=== PATIENT | female | born 1930 | race Caucasian/White ===

== ENCOUNTER 2016-08-10 13:29 | Observation (INO) | payer OTHER, MEDICARE ==
[~2016-08-10] VITALS: Ht 167.6 cm; Wt 62.2 kg
[~2016-08-10 13:29] MED LIST: ANTI-DIARRHEA2 MG PO; ASPIRIN81 M1 PO; BYSTOLIC10 MG PO; BYSTOLIC20 MG PO; CIPRO500 MG PO; CYANOCOBALAM1000 MCG PO; DIAZEPAM5 MG PO; ELIQUIS2.5 MG PO; Ecotrin PO; FOLIC ACID1 MG PO; GLUCOPHAGE1000 MG PO; GLUCOPHAGE500 MG PO; IBUPROFEN800 MG PO; IMODIUM A-D2 MG PO; JANUVIA100 MG PO; LEVOTHYROXINE88 MCG PO; LEVOXYL100 MCG PO; METFORMIN HCL500 MG PO; NORVASC10 MG PO; NORVASC5 MG PO; SIMVASTATIN20 MG PO; SYNTHROID100 MCG PO; VALIUM5 MG PO; VITAMIN D31000 UNI2 PO; ZOCOR20 MG PO
[2016-08-10 14:09] LABS: HEMATOCRIT 41.8 % (36.0-46.0); MCH 28.2 PG (29.0-34.0); MCV 85.3 FL (83-99); MEAN PLAT.VOLUME 9.4 uM^3 (9.5-12.4); PLATELET COUNT 208 K/uL (156-360); RBC DIS.WIDTH-CV 13.2 % (11.8-14.6); RBC DIS.WIDTH-SD 40.6 % (39-53)
[2016-08-10 14:22] LABS: CHLORIDE 101 mEq/L (99-109); POTASSIUM 4.1 mEq/L (3.7-5.4); SODIUM 137 mEq/L (136-147)
[2016-08-10 14:24] LABS: GLUCOSE 147 mg/dL (70-99)
[2016-08-10 14:25] LABS: ANION GAP 8 MEQ/L (2-14)
[2016-08-10 14:26] LABS: TOTAL BILIRUBIN 0.6 mg/dL (0.0-1.0)
[2016-08-10 14:27] LABS: ALKALINE PHOSPHATASE 22 IU/L (3-129)
[2016-08-10 14:28] LABS: GFR ESTIMATE (CALCULATED) > 59 mL/min/
[2016-08-10 14:29] LABS: UREA NITROGEN (BUN) 13 mg/dL (9-23)
[2016-08-10] MEDS ORDERED: ULTRAM50 MG PO (17:27)
[2016-08-10] MEDS ORDERED: LEVOTHYROXINE100 MCG PO (21:57)
[2016-08-10] MEDS ORDERED: NORVASC2.5 MG PO (21:57)
[2016-08-10] MEDS ORDERED: NAMENDA10 MG PO (21:58)
[2016-08-11 00:15] VITALS: BP 140/76
[2016-08-11 00:50] VITALS: BP 140/76
[2016-08-11 03:53] VITALS: BP 180/77
[2016-08-11 06:52] LABS: POINT-OF-CARE METER ID UU14149397
[2016-08-11 07:20] LABS: HEMATOCRIT 40.1 % (36.0-46.0); MCH 28.1 PG (29.0-34.0); MCHC 33.2 G/DL (30.0-36.0); MCV 84.6 FL (83-99); MEAN PLAT.VOLUME 9.5 uM^3 (9.5-12.4); PLATELET COUNT 217 K/uL (156-360); RBC DIS.WIDTH-CV 12.8 % (11.8-14.6); RBC DIS.WIDTH-SD 39.6 % (39-53); RED BLOOD COUNT 4.74 M/uL (3.80-5.20); WHITE BLOOD COUNT 10.3 K/uL (4.1-10.2)
[2016-08-11 07:41] LABS: ANION GAP 9 MEQ/L (2-14); CHLORIDE 97 MEQ/L (99-109); GFR ESTIMATE (CALCULATED) > 59 mL/min/; GLUCOSE 200 mg/dL (70-99); POTASSIUM 3.7 MEQ/L (3.7-5.4); SAMPLE HEMOLYSIS CHECK 0; SAMPLE ICTERIC CHECK 0; SAMPLE LIPEMIA CHECK 0; SODIUM 134 MEQ/L (136-147); UREA NITROGEN (BUN) 11 mg/dL (9-23)
[2016-08-11 07:52] VITALS: BP 150/82
[2016-08-11 11:28] VITALS: BP 169/74
[2016-08-11 11:57] LABS: POINT-OF-CARE METER ID UU14149397
[2016-08-11 15:49] VITALS: BP 132/68
[2016-08-11] MEDS ORDERED: AMLODIPINE BES2.5 MG PO (15:53)
[2016-08-11] MEDS ORDERED: DOCUSATE SODIU100 MG PO (15:54)
[2016-08-11 16:50] LABS: ADD MIUA? YES; BILIRUBIN NEGATIVE; BLOOD SMALL; COLOR YELLOW ((YELLOW)); GLUCOSE (STRIP) 50; KETONES 5; LEUKOCYTES LARGE; NITRITE NEGATIVE; PROTEIN (STRIP) NEGATIVE; SPECIFIC GRAVITY 1.008 (1.000-1.030); UROBILINOGEN 0.2 MG/DL (0.2-1.0)
[2016-08-11 16:55] LABS: POINT-OF-CARE METER ID UU14149397
[2016-08-11 17:01] LABS: BACTERIA NONE SEEN /HPF; EPITHELIAL CELLS RARE /HPF; MUCUS TRACE /LPF; RED BLOOD CELLS 0-5 /HPF (0-5); UCUL ADDED? NO; WHITE BLOOD CELLS 30-40 /HPF (0-5)
[2016-08-11] MEDS ORDERED: KEFLEX500 MG PO (17:33)
== END 2016-08-11 18:23 ==
LOC: EME 13:29 → EDOF 22:48 → 3EAST 23:58
PROVIDERS: Hospitalist; Internal Medicine; Nurse Practitioner Family; Physician Assistant
DX: S82.032A Displaced transverse fracture of left patella, initial encounter for closed fracture (principal); S22.42XA Multiple fractures of ribs, left side, initial encounter for closed fracture; M25.462 Effusion, left knee; E11.9 Type 2 diabetes mellitus without complications; I10 Essential (primary) hypertension; E78.5 Hyperlipidemia, unspecified; I48.91 Unspecified atrial fibrillation; R41.0 Disorientation, unspecified; I49.5 Sick sinus syndrome; I25.10 Atherosclerotic heart disease of native coronary artery without angina pectoris; I25.2 Old myocardial infarction; Z95.5 Presence of coronary angioplasty implant and graft; E11.8 Type 2 diabetes mellitus with unspecified complications; E03.9 Hypothyroidism, unspecified; Z95.0 Presence of cardiac pacemaker; Z87.891 Personal history of nicotine dependence; Z88.0 Allergy status to penicillin; Z91.040 Latex allergy status; Z79.01 Long term (current) use of anticoagulants; W19.XXXA Unspecified fall, initial encounter
CPT/HCPCS: 70450; 71020; 71101; 72125; 73030; 73130; 73564; 80048; 80053; 81003; 82948; 85027; 87040; 87086; 93005; 99281; 99285; G0378; J1815; J7030

== ENCOUNTER 2017-08-01 08:24 | Inpatient (IN) | payer OTHER, MEDICARE ==
[~2017-08-01] VITALS: Ht 167.6 cm; Wt 54.0 kg
[~2017-08-01 08:24] MED LIST changes: +AMLODIPINE BES2.5 MG PO; +DOCUSATE SODIU100 MG PO; +KEFLEX500 MG PO; +LEVOTHYROXINE100 MCG PO; +NAMENDA10 MG PO; +NORVASC2.5 MG PO; +ULTRAM50 MG PO
[2017-08-01 09:51] LABS: BASOPHIL (%) 0.9 % (0-1); BASOPHIL COUNT 0.1 K/uL (0-0.1); EOSINOPHIL (%) 5.1 % (0-5); EOSINOPHIL COUNT 0.4 K/uL (0-0.3); HEMATOCRIT 36.8 % (36.0-46.0); HEMOGLOBIN 12.1 G/DL (11.9-15.5); IMMATURE GRANULOCYTE (%) 0.6 % (0.0-0.7); LYMPHOCYTE (%) 12.5 % (15-42); MCH 27.6 PG (29.0-34.0); MCHC 32.9 G/DL (30.0-36.0); MONOCYTE (%) 6.3 % (3-12); MONOCYTE COUNT 0.5 K/uL (0-0.8); NEUTROPHIL (%) 74.6 % (45-76); PLATELET COUNT 231 K/uL (156-360); RBC DIS.WIDTH-CV 13.6 % (11.8-14.6); RBC DIS.WIDTH-SD 41.2 % (39-53); RED BLOOD COUNT 4.38 M/uL (3.80-5.20); WHITE BLOOD COUNT 8.1 K/uL (4.1-10.2)
[2017-08-01 09:54] LABS: CARBON DIOXIDE (BICARBONATE) 32.6 MEQ/L (20-31)
[2017-08-01 09:58] LABS: D-DIMER ELISA < 150.00 ng/mLDDU (<230)
[2017-08-01 10:05] LABS: ALBUMIN 3.4 g/dL (3.2-4.8); CHLORIDE 99 mEq/L (99-109); POTASSIUM 4.6 mEq/L (3.7-5.4)
[2017-08-01 10:06] LABS: MAGNESIUM 1.6 mg/dL (1.3-2.7); SODIUM 133 mEq/L (136-147)
[2017-08-01 10:08] LABS: GLUCOSE 146 mg/dL (70-99); TOTAL PROTEIN 7.1 g/dL (6.4-8.3)
[2017-08-01 10:10] LABS: TOTAL BILIRUBIN 0.6 mg/dL (0.0-1.0)
[2017-08-01 10:11] LABS: ALKALINE PHOSPHATASE 19 IU/L (3-129)
[2017-08-01 10:12] LABS: CREATININE 0.8 mg/dL (0.6-1.3); GFR ESTIMATE (CALCULATED) > 59 mL/min/
[2017-08-01 10:13] LABS: AST (GOT) 20 IU/L (2-34); UREA NITROGEN (BUN) 23 mg/dL (9-23)
[2017-08-01 10:15] LABS: ALT (GPT) 9 IU/L (3-49); CREATINE KINASE 16 IU/L (1-294); TOTAL CK 16 IU/L (1-294)
[2017-08-01 10:17] LABS: TROP-I INTERPRETATION NEGATIVE; TROPONIN-I 0.02 ng/mL (0.0-0.30)
[2017-08-01 10:21] LABS: CK-MB 0.9 ng/mL (0.0-4.9); CKMB RELATIVE INDEX 5.6 (0.0-3.9)
[2017-08-01 10:57] LABS: THYROTROPIN (TSH) 1.2 MIU/L (0.4-5.5)
[2017-08-01] MEDS ORDERED: LUMIGAN 0.50 DROP/22 BOTH EYES (11:34)
[2017-08-01] MEDS ORDERED: POTASSIUM CHLO10 ME4 PO (11:35)
[2017-08-01] MEDS ORDERED: RANITIDINE HCL150 MG PO (11:36)
[2017-08-01] MEDS ORDERED: ELIQUIS2.5 MG PO (11:36)
[2017-08-01] MEDS ORDERED: MILK OF MAGN PO (11:38)
[2017-08-01] MEDS ORDERED: TYLENOL EXTRA500 MG PO (11:38)
[2017-08-01 13:22] LABS: APPEARANCE CLOUDY ((CLEAR)); BILIRUBIN NEGATIVE; BLOOD NEGATIVE; COLOR YELLOW ((YELLOW)); GLUCOSE (STRIP) NEGATIVE; KETONES NEGATIVE; LEUKOCYTES LARGE; NITRITE NEGATIVE; PROTEIN (STRIP) 30; SPECIFIC GRAVITY 1.017 (1.000-1.030); UROBILINOGEN 0.2 MG/DL (0.2-1.0)
[2017-08-01 13:46] LABS: BACTERIA RARE /HPF; EPITHELIAL CELLS RARE /HPF; MUCUS NONE SEEN /LPF; RED BLOOD CELLS NONE SEEN /HPF (0-5); UCUL ADDED? YES; WHITE BLOOD CELLS 40-50 /HPF (0-5)
[2017-08-01 14:16] VITALS: BP 172/74
[2017-08-01 14:19] LABS: HEMOGLOBIN A1c (GLYCOHEMOGLOB) 6.5 % (Below 5.7)
[2017-08-01 15:00] VITALS: BP 145/64
[2017-08-01 17:59] LABS: TROP-I INTERPRETATION NEGATIVE; TROPONIN-I 0.04 ng/mL (0.0-0.30)
[2017-08-01 23:25] VITALS: BP 154/81
[2017-08-02 01:49] LABS: TROP-I INTERPRETATION NEGATIVE; TROPONIN-I 0.03 ng/mL (0.0-0.30)
[2017-08-02 03:47] VITALS: BP 153/70
[2017-08-02 06:41] LABS: HEMOGLOBIN 11.9 G/DL (11.9-15.5); MCH 26.8 PG (29.0-34.0); MCHC 32.2 G/DL (30.0-36.0); MCV 83.3 FL (83-99); PLATELET COUNT 242 K/uL (156-360); RBC DIS.WIDTH-CV 13.6 % (11.8-14.6); RBC DIS.WIDTH-SD 41.1 % (39-53); RED BLOOD COUNT 4.44 M/uL (3.80-5.20)
[2017-08-02 06:44] VITALS: BP 185/83
[2017-08-02 07:09] LABS: CHLORIDE 99 MEQ/L (99-109); CREATININE 0.7 MG/DL (0.6-1.3); GFR ESTIMATE (CALCULATED) > 59 mL/min/; GLUCOSE 139 mg/dL (70-99); POTASSIUM 3.9 MEQ/L (3.7-5.4); SODIUM 135 MEQ/L (136-147); UREA NITROGEN (BUN) 16 mg/dL (9-23)
[2017-08-02 11:02] VITALS: BP 148/70
[2017-08-02 14:50] VITALS: BP 157/70
[2017-08-02 20:05] VITALS: BP 151/86
[2017-08-02 23:54] VITALS: BP 138/61
[2017-08-03 04:18] VITALS: BP 165/69
[2017-08-03 06:55] VITALS: BP 141/63
[2017-08-03 11:00] VITALS: BP 127/59
[2017-08-03 15:00] VITALS: BP 138/64
[2017-08-03 23:22] VITALS: BP 137/62
[2017-08-04 06:02] LABS: HEMATOCRIT 37.5 % (36.0-46.0); HEMOGLOBIN 12.1 G/DL (11.9-15.5); MCH 27.1 PG (29.0-34.0); MCHC 32.3 G/DL (30.0-36.0); MCV 83.9 FL (83-99); PLATELET COUNT 265 K/uL (156-360); RBC DIS.WIDTH-CV 13.6 % (11.8-14.6); RBC DIS.WIDTH-SD 41.5 % (39-53); RED BLOOD COUNT 4.47 M/uL (3.80-5.20); WHITE BLOOD COUNT 9.8 K/uL (4.1-10.2)
[2017-08-04 06:23] LABS: CHLORIDE 99 MEQ/L (99-109); CREATININE 0.8 MG/DL (0.6-1.3); GFR ESTIMATE (CALCULATED) > 59 mL/min/; GLUCOSE 162 mg/dL (70-99); POTASSIUM 3.7 MEQ/L (3.7-5.4); SODIUM 135 MEQ/L (136-147); UREA NITROGEN (BUN) 20 mg/dL (9-23)
[2017-08-04 07:20] VITALS: BP 116/69
[2017-08-04 11:00] VITALS: BP 120/72
[2017-08-04] MEDS ORDERED: BYSTOLIC10 MG PO (12:04)
[2017-08-04] MEDS ORDERED: CEFTIN500 MG PO (12:05)
== END 2017-08-04 15:21 | DRG 194 ==
LOC: EME 08:24 → 5EAST 11:17 → EDOF 11:17 → ENRESERV 11:35 → 5EAST 13:45
PROVIDERS: Emergency Medicine; Internal Medicine; Physician Assistant
DX: J18.9 Pneumonia, unspecified organism (principal); E87.1 Hypo-osmolality and hyponatremia; I95.9 Hypotension, unspecified; I42.9 Cardiomyopathy, unspecified; I10 Essential (primary) hypertension; F03.90 Unspecified dementia, unspecified severity, without behavioral disturbance, psychotic disturbance, mood disturbance, and anxiety; I25.10 Atherosclerotic heart disease of native coronary artery without angina pectoris; E11.9 Type 2 diabetes mellitus without complications; Z87.891 Personal history of nicotine dependence; E03.9 Hypothyroidism, unspecified; R09.02 Hypoxemia; Z95.0 Presence of cardiac pacemaker; I48.0 Paroxysmal atrial fibrillation; I27.20 Pulmonary hypertension, unspecified; I25.2 Old myocardial infarction; I44.0 Atrioventricular block, first degree; Z95.5 Presence of coronary angioplasty implant and graft; Z79.01 Long term (current) use of anticoagulants; Z79.84 Long term (current) use of oral hypoglycemic drugs
CPT/HCPCS: 71046; 80048; 80053; 81003; 82550; 82553; 82803; 82948; 83036; 83735; 83880; 84443; 84484; 85025; 85027; 85379; 87040; 87070; 87086; 87205; 93005; 93306; 94799; 99202; 99281; 99285; J0456; J0696; J1650; J7030